=== PATIENT | female | born 1965 | race Caucasian/White ===

== ENCOUNTER 2018-08-13 20:07 | Outpatient (REF) | payer OTHER, SELFPAY ==
[2018-08-13 20:33] LABS: HCT 40.3 % (36.0-46.0); HGB 13.2 g/dL (12.0-15.5)
== END 2018-08-13 20:27 ==
LOC: NCHCN 20:07
PROVIDERS: PCP Family Medicine; Visit Provider Family Medicine
DX: N92.1 Excessive and frequent menstruation with irregular cycle (principal); D50.0 Iron deficiency anemia secondary to blood loss (chronic)
CPT/HCPCS: 85014; 85018

== ENCOUNTER 2023-04-03 14:53 | Outpatient (REF) | payer BC, SELFPAY ==
--- OUTSIDE RECORDS SUMMARY | 2023-04-03 15:01 | XMS_ITS | CCD ---
Author Name Unknown Address [address] [place] [address] [id number] Organization Unknown Address [address], [place] [id number] Care Team Providers Care Lost And Found Clerk Name Role Phone LEILA FRANCO Attending Physician [phone] Vital Signs Unknown or Not Available. Allergies Allergy Code Allergy Type Reaction Status CODEINE 2670 Drug allergy abdominal (pain) Active Procedures Unknown or Not Available. History of Immunizations Unknown or Not Available. Problems Unknown or Not Available. Results Unknown or Not Available. Active Medications Unknown or Not Available. Medications Administered During Visit Unknown or Not Available. Encounters Encounter Diagnosis Diagnosis Code Start Date Encounter for screening mamm ogram for malignant neoplasm of breast [id number] 03/14/2022 Social History Smoking Status Code Start Date End Date Never smoker [id number] Patient Decision Aids Unknown or Not Available. Discharge Instructions You were admitted to [facility] on 03/14/2022 10:06 with a principal diagnosis of Encounter for screening mammogram for malignant neoplasm of breast You were discharged from [facility] on 03/14/2022 10:06 Should you have any questions prior to discharge, please contact a member of your healthcare team. If you have left the hospital and have any questions, please contact your primary care physician. Chief Complaint and Reason For Visit Chief Complaint Date of Onset SCREENING Function Status Unknown or Not Available. Plan of Care Unknown or Not Available. Referral/Transition of Care Unknown or Not Available.
[2023-04-03 16:48] LABS: Anion Gap 10.2 mmol/L (3-11); BUN 10 mg/dL (7-18); CO2 25.8 mmol/L (21.0-32.0); CREATININE 0.7 mg/dL (0.55-1.02); Calcium 8.8 mg/dL (8.5-10.1); Calculated LDL 122 mg/dL (<100); Chloride 105 mmol/L (98-107); Cholesterol 174 mg/dL (<200); Estimated GFR 99.57 (mL/min/1.73m2); Glucose 102 mg/dL (74-106); HDL Cholesterol 46 mg/dL (40-60); Potassium 4.2 mmol/L (3.5-5.1); Sodium 141 mmol/L (136-145); Triglyceride 34 mg/dL (<150)
== END 2023-04-03 14:54 | disposition home or self-care (01) ==
LOC: NCHCN 14:53
PROVIDERS: PCP Family Medicine; Visit Provider Family Medicine
DX: Z00.00 Encounter for general adult medical examination without abnormal findings (principal); Z13.220 Encounter for screening for lipoid disorders; Z13.228 Encounter for screening for other metabolic disorders
CPT/HCPCS: 80048; 80061

== ENCOUNTER 2023-04-10 15:11 | Outpatient (REF) | payer BC, SELFPAY ==
--- NOTE | 2023-04-10 14:58 | PAPFT_PTH ---
PATIENT: Adelaida Reyna LOC: [facility]#:[id number] AGE/SX: 57/F ROOM: RE04/10/[address]: Julius Heath : 1965 BED: DIS: 04/10/2023 SPEC #: [id number] RECD: 04/16/23 13:40 STATUS: DANIKA REQ #: [id number] EDWARD: 04/10/23 14:[address]: Julius Heath DEPT: [facility] Cytology RECD BY: Elodia Cardoso ENTERED: 04/16/23 13:41 SP TYPE: PAPFT OTHR DR: Maggi Domínguez Tissues: 1 - CX/ENDOCX FOR PAP SMEARS Procedures: PAP THIN PREP/[facility] Screening HPV DNA PROBE Comments: [id number]
== END 2023-04-10 15:12 | disposition home or self-care (01) ==
LOC: NCHCN 15:11
PROVIDERS: PCP Family Medicine; Visit Provider Family Medicine
DX: Z00.00 Encounter for general adult medical examination without abnormal findings
CPT/HCPCS: 88142; 87624

== ENCOUNTER 2023-12-28 17:47 | Outpatient (REF) | payer BC, SELFPAY ==
[2023-12-28 21:52] LABS: Abs Immature Grans 0.03 10^3/uL (0.0-0.06); Absolute Basophil Count 0.03 10^3/uL (0.0-0.2); Absolute Eosinophil Count 0.03 10^3/uL (0.0-0.7); Absolute Lymphocyte Count 1.76 10^3/uL (1.2-3.4); Absolute Monocyte Count 0.61 10^3/uL (0.1-0.8); Absolute Neutrophil Count 5.95 10^3/uL (1.2-6.7); Basophils % 0.4; Eosinophils % 0.4; HCT 42.6 % (36.0-46.0); Immature Grans % 0.4; Lymphocytes % 20.9; MCH 28.1 pg (27.0-33.0); MCHC 32.9 % (32.0-36.0); MCV 86 fL (80-95); MPV 9.6 fL (8.0-11.0); Monocytes % 7.3; Neutrophils % 70.6; Platelet Count 307 10^3/uL (130-400); RBC 4.98 10^6/uL (3.93-5.22); RDW 13.4 % (11.7-14.6); RDW-SD 42.3 fL; WBC 8.41 10^3/uL (4.4-10.8)
[2023-12-28 21:59] LABS: ESR 6 mm/hr (0-30)
[2023-12-28 22:08] LABS: ALT 34 U/L (14-59); AST 20 U/L (15-37); Albumin 4.1 g/dL (3.4-5.0); Alkaline Phosphatase 101 U/L (46-116); Anion Gap 9.8 mmol/L (3-11); BUN 13 mg/dL (7-18); Bilirubin, Total 0.3 mg/dL (0.2-1.0); C-Reactive Protein < 0.50 mg/dL (<or=0.5); CO2 27.2 mmol/L (21.0-32.0); CREATININE 0.7 mg/dL (0.55-1.02); Calcium 9.2 mg/dL (8.5-10.1); Chloride 100 mmol/L (98-107); Estimated GFR 98.95 (mL/min/1.73m2); Glucose 93 mg/dL (74-106); Potassium 3.5 mmol/L (3.5-5.1); Sodium 137 mmol/L (136-145); TSH 3.59 uIU/Ml (0.36-3.74); Total Protein 7.6 g/dL (6.4-8.2); Uric Acid 4.9 mg/dL (2.6-6.0)
[2023-12-30 11:03] LABS: Lyme Ab w Rflx to Lyme Confirm Negative (Negative)
[2024-01-01 15:46] LABS: Anaplasma phagocytophilum Negative (Negative); B. miyamotoi PCR Negative (Negative); Babesia divergens/MO-1 Negative (Negative); Babesia duncani Negative (Negative); Babesia microti Negative (Negative); Ehrlichia chaffeensis Negative (Negative); Ehrlichia ewingii/canis Negative (Negative); Ehrlichia muris eauclairensis Negative (Negative)
== END 2023-12-28 17:48 | disposition home or self-care (01) ==
LOC: NCHCN 17:47
PROVIDERS: PCP Family Medicine; Visit Provider Nurse Practitioner Family
DX: R53.83 Other fatigue (principal); M79.18 Myalgia, other site
CPT/HCPCS: 80053; 85652; 87798; 84443; 84550; 85025; 86140; 86618

== ENCOUNTER 2024-04-08 13:20 | Outpatient (REF) | payer BC, SELFPAY ==
[2024-04-08 15:13] LABS: Anion Gap 8.5 mmol/L (3-11); BUN 10 mg/dL (7-18); CO2 29.5 mmol/L (21.0-32.0); CREATININE 0.7 mg/dL (0.55-1.02); Calcium 8.8 mg/dL (8.5-10.1); Calculated LDL 142 mg/dL (<100); Chloride 105 mmol/L (98-107); Cholesterol 201 mg/dL (<200); Estimated GFR 98.95 (mL/min/1.73m2); Glucose 102 mg/dL (74-106); HDL Cholesterol 52 mg/dL (40-60); Sodium 143 mmol/L (136-145); Triglyceride 39 mg/dL (<150)
[2024-04-08 15:15] LABS: HCT 41.9 % (36.0-46.0); HGB 13.8 g/dL (11.2-15.7); MCH 28.3 pg (27.0-33.0); MCHC 32.9 % (32.0-36.0); MCV 86 fL (80-95); MPV 9.7 fL (8.0-11.0); Platelet Count 283 10^3/uL (130-400); RBC 4.88 10^6/uL (3.93-5.22); RDW 13.5 % (11.7-14.6); RDW-SD 42.5 fL; WBC 3.88 10^3/uL (4.4-10.8)
== END 2024-04-08 13:21 | disposition home or self-care (01) ==
LOC: NCHCN 13:20
PROVIDERS: PCP Family Medicine; Visit Provider Family Medicine
DX: Z00.00 Encounter for general adult medical examination without abnormal findings (principal); D50.9 Iron deficiency anemia, unspecified; Z13.220 Encounter for screening for lipoid disorders
CPT/HCPCS: 80048; 80061; 85027

== ENCOUNTER 2025-04-27 23:11 | Outpatient (REF) | payer OTHER, SELFPAY ==
[2025-04-27 16:50] LABS: Cholesterol 179 mg/dL (<200); HDL Cholesterol 50 mg/dL (>or=50); Triglyceride <25 mg/dL (<150)
[2025-04-27 17:01] LABS: LDL CHOLESTEROL 122 mg/dL (<100)
== END 2025-04-27 23:12 | disposition home or self-care (01) ==
LOC: NCHCN 23:11
PROVIDERS: PCP Family Medicine; Visit Provider Nurse Practitioner Family
DX: Z13.220 Encounter for screening for lipoid disorders (principal)
CPT/HCPCS: 80061; 83721

== ENCOUNTER 2025-05-12 19:30 | Outpatient (REF) | payer OTHER, SELFPAY ==
[2025-05-13 13:20] LABS: Bacterial Vaginosis (BV) Positive (Negative); Candida glabrata Negative (Negative); Candida species group Negative (Negative)
== END 2025-05-12 19:31 | disposition home or self-care (01) ==
LOC: NCHCN 19:30
PROVIDERS: PCP Family Medicine; Visit Provider Family Medicine
DX: N89.8 Other specified noninflammatory disorders of vagina (principal)
CPT/HCPCS: 81513; 87481; 87661